=== PATIENT | male | born 1950 | race Caucasian/White ===

== ENCOUNTER → 2018-12-15 06:29 | Outpatient (CLI) | payer MEDICARE, SELFPAY ==
--- NOTE | 2018-12-15 | DI.ECHO.S_ITS ---
[facility] +---------+ : : [address] : : [place] : : : : [id number] : : : : Phone: [phone]---------+ Echocardiogram Report + + :Name: CIERRA MAZARIEGOS Study Date: 12/15/2018 Height: 67 in : :[facility] Weight: 170 lb : : Gender: Male BSA: 1.9 m2 : :: 1950 Age: 68 yrs BP: 160/88 mmHg: :Reason For Study: Arrhythmia : : Performed By: Nkechi Campbell : :Referring: BENJAMIN GUIDO : + + Interpretation Summary 1) Normal left ventricular size with low normal function (EF 50-55%). 2) Normal right ventricular size and function grossly. 3) Mild mitral regurgitation present. 4) Normal right sided pressures and estimated PA pressures. 5) No prior Echo available for comparison. Procedure: A two-dimensional transthoracic echocardiogram with color flow and Doppler was performed. The study quality was technically adequate. There is no prior echocardiogram noted for this patient. The heart rate ranged between 55-62 bpm during the study. Left Ventricle: The left ventricle is normal in size. There is mild asymmetric left ventricular hypertrophy. The ejection fraction is estimated to be 50-55%. Left ventricular systolic function is low normal. There are no focal wall motion abnormalities. Right Ventricle: The right ventricle grossly appears normal in size with probable normal systolic function. Atria: The left atrium is moderately dilated. Right atrial size is normal. The interatrial septum is intact with no evidence for an atrial septal defect. Mitral Valve: The mitral valve is grossly normal. There is mild mitral regurgitation. Aortic Valve: The aortic valve is trileaflet. The aortic valve opens well. No aortic regurgitation is present. Tricuspid Valve: The tricuspid valve is normal in structure and function. There is trace tricuspid regurgitation. The right ventricular systolic pressure is estimated to be at least 29 mmHg based on an estimated right atrial pressure of 3 mm Hg. Pulmonic Valve: The pulmonic valve is not well seen, but is grossly normal. There is no pulmonic valvular regurgitation. Great Vessels: The aortic root is normal size. The dimensions of the ascending aorta are normal. The aortic arch is normal in size. The IVC is of normal diameter and collapses greater than 50% with a sniff. This suggests a low right atrial pressure of 3 mm Hg. Pericardium/ Pleura There is no pericardial effusion. There is no pleural effusion. MMode/2D Measurements & Calculations LVIDd: 4.9 cm Ao root diam: 3.3 cm LVIDs: 3.6 cm Aortic Jxn: 2.5 cm FS: 25.8 % asc Aorta Diam: 2.9 cm EPSS: 1.0 cm Ao Arch Diam (Prox Trans): 2.6 cm IVSd: 1.3 cm LVPWd: 0.93 cm LV vera. diameter/BSA (cm/m^2): 2.6 LV sys. diameter/BSA (cm/m^2): 1.9 LA dimension: 4.4 cm RA long axis: 4.5 cm LA A2 area: 22.7 cm2 RA area: 15.4 cm2 LA A4 area: 23.9 cm2 RA vol: 44.9 ml LA length (vol): 6.0 cm RA : 23.8 ml/m2 LA vol: 76.4 ml IVC diam: 2.0 cm LA vol index: 40.5 ml/m2 RVDd major: 6.5 cm RVD1 (basal): 3.4 cm RVD2 (mid): 3.3 cm Doppler Measurements & Calculations Ao V2 max: 132.4 cm/sec MV E max hill: 72.3 cm/sec Ao V2 mean: 85.5 cm/sec MV A max hill: 89.0 cm/sec Ao max P.0 mmHg MV E/A: 0.81 Ao mean P.5 mmHg Med Peak E' Hill: 5.9 cm/sec Ao V2 VTI: 30.8 cm E/E' med: 12.3 Lat Peak E[place] Hill: 8.6 cm/sec E/E' lat: 8.4 E/e' average: 10.3 MV dec time: 0.24 sec MV P1/2t: 70.4 msec TR max hill: 256.1 cm/sec MV P1/2t max hill: 71.9 cm/sec TR max P.2 mmHg MVA(P1/2t): 3.1 cm2 PA V2 max: 87.4 cm/sec PA V2 mean: 62.8 cm/sec PA mean P.8 mmHg PA Accel Time: 0.15 sec MR flow rate: 55.4 cm3/sec MR PISA radius: 0.48 cm Reading Physician:09:21 AM
== END ==
PROVIDERS: PCP Internal Medicine; Visit Provider Internal Medicine
DX: I34.0 Nonrheumatic mitral (valve) insufficiency (principal); I49.9 Cardiac arrhythmia, unspecified
CPT/HCPCS: 93306

== ENCOUNTER → 2018-12-19 10:43 | Outpatient (CLI) | payer MEDICARE, OTHER, SELFPAY ==
[2018-12-19 15:05] LABS: Alanine Aminotransferase 21 IU/L (21-72); Albumin 4.4 g/dL (3.5-5.0); Albumin Globulin Ratio 1.6 (1.0-2.8); Alkaline Phosphatase 98 U/L (38-126); Aspartate Aminotransferase 29 IU/L (17-59); Bilirubin Total 0.7 mg/dL (0.2-1.3); Blood Urea Nitrogen 13 mg/dL (9-20); Calcium 9.5 mg/dL (8.4-10.2); Carbon Dioxide 29 mmol/L (22-32); Chloride 102 mmol/L (98-107); Estimated Glomerular Filt Rate > 60.0 mL/min (>60); Globulin 2.8 g/dL (1.7-4.1); Glucose 100 mg/dL (80-110); HEMOLYSIS < 15 (0-50); Potassium 4.2 mmol/L (3.4-5.1); Sodium 140 mmol/L (137-145); Total Protein 7.2 g/dL (6.3-8.2)
[2018-12-19 15:32] LABS: TSH w/ Reflex to FT4 3.69 uIU/mL (0.47-4.68)
== END ==
PROVIDERS: Family Provider Internal Medicine Cardiovascular Disease; PCP Internal Medicine; Visit Provider Internal Medicine
DX: I49.9 Cardiac arrhythmia, unspecified (principal)
CPT/HCPCS: 36415; 80053; 84443

== ENCOUNTER → 2019-01-01 07:41 | Outpatient (CLI) | payer MEDICARE, SELFPAY ==
--- NOTE | 2019-01-01 09:52 | P.PCN_ITS ---
Cardiac Stress Test Report Referral & Results Date Patient Seen: 01/01/19 Requesting provider: See Syed Indication: Bradycardia Rest ECG: Patient with nonspecific interventricular conduction delay at rest Procedure Note: Today following both written and verbal informed consent, the patient was exercised according to a standard Rob protocol. The patient exercised for a total of 8 minutes 8 seconds achieving a maximum heart rate of 142. Patient's maximum systolic blood pressure was 270. This was an estimated 10.1 MET's. Patient experienced significant dyspnea with wheezing at end exercise which prompted him to. Patient's blood pressure response to exercise was excessive, often seen in the setting of significant pulmonary disease or distress Patient had no clear ST-T segment changes with exercise. His underlying interventricular conduction abnormality would potentially mass some evidence of ischemia Occasional PAC Functional aerobic impairment rated-12% on the active scale, or 112% of normal Impression: Patient with no evidence of ischemia per usual criteria. Baseline ECG abnor malities might mask some findings. Patient did experience some mild symptoms I think related more to pulmonary disease and dyspnea than anything else. If clinical concern warrants this certainly could be repeated with perfusion imaging as well for increased sensitivity and specificity Patient's exercise capacity is quite good. Overall this is a low risk study Please note: Actual ECG tracings can be found in the PACS system.
== END ==
PROVIDERS: Family Provider Internal Medicine Cardiovascular Disease; PCP Internal Medicine; Visit Provider Internal Medicine
DX: I49.9 Cardiac arrhythmia, unspecified (principal); R06.00 Dyspnea, unspecified; J98.4 Other disorders of lung
CPT/HCPCS: 93016; 93017; 93018

== ENCOUNTER → 2019-01-17 09:16 | Outpatient (CLI) | payer MEDICARE, OTHER, SELFPAY ==
[2019-01-17 11:12] LABS: Cholesterol 216 mg/dL (140-199); HDL Cholesterol 46 mg/dL (40-60); LDL Cholesterol Calculated 147 mg/dL (<100); Triglycerides 117 mg/dL (35-150)
== END ==
PROVIDERS: PCP Internal Medicine; Visit Provider Internal Medicine Cardiovascular Disease
DX: I10 Essential (primary) hypertension (principal); E78.5 Hyperlipidemia, unspecified
CPT/HCPCS: 36415; 80061; 83735

== ENCOUNTER → 2019-05-02 11:00 | Outpatient (CLI) | payer MEDICARE, SELFPAY ==
[2019-05-02 13:08] LABS: BUN Creatinine Ratio 16.3 (6-22); Blood Urea Nitrogen 13 mg/dL (9-20); Calcium 9.2 mg/dL (8.4-10.2); Carbon Dioxide 32 mmol/L (22-32); Chloride 100 mmol/L (98-107); Estimated Glomerular Filt Rate > 60.0 mL/min (>60); Glucose 87 mg/dL (80-110); HEMOLYSIS < 15 (0-50); Potassium 3.6 mmol/L (3.4-5.1); Sodium 140 mmol/L (137-145)
== END ==
PROVIDERS: Family Provider Internal Medicine; PCP Internal Medicine
DX: G45.9 Transient cerebral ischemic attack, unspecified (principal)
CPT/HCPCS: 36415; 80048

== ENCOUNTER → 2019-05-03 13:22 | Outpatient (CLI) | payer MEDICARE, SELFPAY ==
--- NOTE | 2019-05-03 | DI.CT.S_ITS ---
PROCEDURE: CT ANGIO HEAD AND NECK INDICATIONS: Transient cerebral ischemic attack, TECHNIQUE: Pre-contrast 4.5 mm thick sections acquired from the foramen magnum to the vertex. After the administration of intravenous contrast, 1 mm thick sections acquired from the aortic arch through the [place]. Post-contrast 4.5 mm thick sections then re-acquired from the foramen magnum to the vertex. 3-dimensional epagldv-pgvkeybad-mqpjsgkvfe (MIP) and/or volume rendering reformats were acquired of the central intracranial vasculature and neck separately. COMPARISON: None. FINDINGS: Image quality: Excellent. BRAIN: CSF spaces: Ventricles are normal in size and shape. Basal cisterns are patent. No extra-axial fluid collections. Brain: No midline shift. No intracranial bleeds or masses. Salas-white matter interface appears intact. Skull and face: Calvarium and facial bones appear intact, without suspicious lesions. Orbits appear normal. Sinuses: Sinuses and mastoids are clear. HEAD CT ANGIOGRAPHY: Anterior circulation: The 5th can be seen within the right internal carotid artery. There is an approximately 80% narrowing seen involving the left cavernous internal carotid artery, which is best seen on series 21 image 48. The flow within the paired anterior cerebral arteries is normal and symmetric. The flow within the middle cerebral arteries is normal and symmetric. The anterior communicating artery is seen. No aneurysms are seen. Posterior circulation: Visualized portions of the vertebral arteries demonstrate normal caliber, and join to form a normal appearing basilar artery. Flow within the posterior cerebral arteries is normal and symmetric. No aneurysms are seen. NECK CT ANGIOGRAPHY: Carotid system: Incidental note is made of a common origin of the right brachiocephalic artery and the left common carotid artery (bovine type arch). This is considered to be a developmental variant of no clinical consequence. Atherosclerotic calcification can be seen involving aortic arch. The origins of the common carotid arteries appear patent. The common carotid arteries demonstrate normal caliber and courses. 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 There is approximately 50% narrowing seen involving the left proximal internal carotid artery. Posterior circulation: The origins of the vertebral arteries both appear widely patent. The more superior extracranial portions of both vertebral arteries also demonstrate normal courses and calibers. They join to form a normal appearing basilar artery. Soft tissues: Visualized neck soft tissues demonstrate no suspicious abnormalities. Bones: No suspicious bony lesions. Visualized cervical spine appears normally aligned. 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 There is an approximate 80% narrowing seen involving the left proximal internal carotid artery. There is an approximate 80% narrowing involving the left cavernous internal carotid artery. Incidental note is made of: Wasatch syndrome, with a prominent right styloid process. Bovine type aortic branching pattern. Any quantitative measurements of stenosis were performed using NASCET criteria. Dictated by: Rajat Muhammad M.D. on 05/03/2019 at 14:17 Approved by: Rajat Muhammad M.D. on 05/03/2019 at 14:25
== END ==
LOC: LAB 13:26 → CT 13:29
PROVIDERS: Family Provider Internal Medicine; PCP Internal Medicine; Visit Provider Psychiatry & Neurology Neurology
DX: I65.23 Occlusion and stenosis of bilateral carotid arteries (principal); Q68.0 Congenital deformity of sternocleidomastoid muscle
CPT/HCPCS: 70496; 70498; Q9967

== ENCOUNTER → 2019-09-18 09:03 | Outpatient (CLI) | payer MEDICARE, SELFPAY ==
[2019-09-18 09:51] LABS: Add Manual Diff / Slide Review NO; Basophils Absolute Auto 0 /uL (0-100); Basophils Percent Auto 0.2 % (0-2); Eosinophils Absolute Auto 200 /uL (0-450); Eosinophils Percent Auto 4.3 % (2-4); Hematocrit 46.7 % (41-53); Hemoglobin 15.9 g/dL (13.5-17.5); Lymphocytes Absolute Auto 1100 /uL (1100-4500); Lymphocytes Percent Auto 20.2 % (25-40); Mean Corpuscular Hemoglobin 29.6 PG (26-34); Monocytes Absolute Auto 500 /uL (0-900); Neutrophils Absolute Auto 3500 /uL (1500-7000); Neutrophils Percent Auto 66.3 % (50-75); Platelet Count 194 X10^3/uL (150-400); Red Blood Cell Count 5.36 X10^6/uL (4.5-5.9); Red Cell Distribution Width 14.1 % (11.6-14.8); White Blood Cell Count 5.3 X10^3/uL (4.5-11.0)
[2019-09-18 10:00] LABS: Cholesterol 108 mg/dL (140-199); HDL Cholesterol 39 mg/dL (40-60); LDL Cholesterol Calculated 57 mg/dL (<100); Triglycerides 59 mg/dL (35-150)
== END ==
PROVIDERS: Family Provider Internal Medicine; PCP Internal Medicine; Referring Provider Internal Medicine Cardiovascular Disease; Visit Provider Internal Medicine Cardiovascular Disease
DX: E78.5 Hyperlipidemia, unspecified (principal); I10 Essential (primary) hypertension
CPT/HCPCS: 36415; 80061; 85025

== ENCOUNTER → 2022-03-08 08:03 | Outpatient (CLI) | payer MEDICARE, SELFPAY ==
--- NOTE | 2022-03-08 | DI.US.S_ITS ---
PROCEDURE: US CAROTID DOPPLER BI INDICATIONS: Occlusion and stenosis of right carotid artery TECHNIQUE: Color and pulse Doppler interrogation was performed of both carotid systems, with image documentation and velocity measurements. COMPARISON: [facility], CT, CT ANGIO HEAD AND NECK, 05/03/2019, 13:36. FINDINGS: Stenosis calculations are based on SRU (Society of Radiologists in Ultrasound) criteria. Right side: Brachial blood pressure: 162/98 mm Hg. Common carotid artery peak systolic velocity: 61 cm/sec. Internal carotid artery peak systolic velocity: Occluded Internal carotid artery end diastolic velocity: Occluded External carotid artery peak systolic velocity: 124 cm/sec. ICA/CCA peak systolic ratio: Occluded Salas scale imaging description: There is an occluded right internal carotid artery. There is potential revascularization seen adjacent to the occluded right internal carotid artery. Percent internal carotid artery stenosis: 100%. Vertebral artery: Flow direction is antegrade. Left side: Brachial blood pressure: 159/96 mm Hg. Common carotid artery peak systolic velocity: 99 cm/sec. Internal carotid artery peak systolic velocity: 76 cm/sec. Internal carotid artery end diastolic velocity: 32 cm/sec. External carotid artery peak systolic velocity: 138 cm/sec. ICA/CCA peak systolic ratio: 0.7 Salas scale imaging description: Moderate atherosclerotic changes are seen. Percent internal carotid artery stenosis: 50-69% by velocity criteria. Vertebral artery: Flow direction is antegrade. IMPRESSION: As previously demonstrated, there is an occluded right internal carotid artery. Potential revascularization can be seen adjacent to the occluded right internal carotid artery. Less than 50% narrowing can be seen involving the right internal carotid artery. Flat Dictated by: Rajat Muhammad M.D. on 03/08/2022 at 11:04 Approved by: Rajat Muhammad M.D. on 03/08/2022 at 11:06
[2022-03-08 09:25] LABS: Alanine Aminotransferase 35 IU/L (<50); Albumin 3.9 g/dL (3.5-5.0); Albumin Globulin Ratio 1.8 (1.0-2.8); Alkaline Phosphatase 118 U/L (38-126); Aspartate Aminotransferase 34 IU/L (17-59); BUN Creatinine Ratio 21.1 (6-22); Bilirubin Total 0.4 mg/dL (0.2-1.3); Blood Urea Nitrogen 20 mg/dL (9-20); Calcium 8.3 mg/dL (8.4-10.2); Carbon Dioxide 29 mmol/L (22-32); Chloride 104 mmol/L (98-107); Cholesterol 113 mg/dL (140-199); Estimated Glomerular Filt Rate > 60 mL/min (>60); Globulin 2.2 g/dL (1.7-4.1); Glucose 94 mg/dL (80-110); HDL Cholesterol 45 mg/dL (40-60); HEMOLYSIS < 15 (0-50); LDL Cholesterol Calculated 58 mg/dL (<100); Potassium 4.1 mmol/L (3.4-5.1); Sodium 140 mmol/L (137-145); Total Protein 6.1 g/dL (6.3-8.2); Triglycerides 51 mg/dL (35-150)
== END ==
PROVIDERS: Family Provider Internal Medicine; PCP Internal Medicine; Referring Provider Internal Medicine Cardiovascular Disease; Visit Provider Internal Medicine Cardiovascular Disease
DX: E78.5 Hyperlipidemia, unspecified (principal); I65.21 Occlusion and stenosis of right carotid artery
CPT/HCPCS: 36415; 80053; 80061; 93880

== ENCOUNTER 2023-01-20 11:36 | Emergency (ER) | payer MEDICARE, SELFPAY ==
[2023-01-20 11:39] VITALS: BP 189/104; PULSE 84; RESP 16; TEMP 36.6; O2SAT 97; BMI 24.9
[2023-01-20] MEDS: TET,DIPH,PERTUSS(ACELL),VAC/PF 0.5 ML SYRINGE IM (11:50)
--- NOTE | 2023-01-20 11:52 | DI.RAD.S_ITS ---
PROCEDURE: XR FINGER RT MIN 2V INDICATIONS: cut tip of finger on saw TECHNIQUE: AP hand, 2 views of the 2nd finger(s) acquired. COMPARISON: None. FINDINGS: Bones: No fractures or dislocations. No suspicious bony lesions. Soft tissues: Soft tissue defect involving tip of 2nd digit is seen. No suspicious soft tissue calcifications. IMPRESSION: Soft tissue defect over tip of 2nd digit. No acute 2nd finger fracture or dislocation. No radiopaque foreign body is seen. Dictated by: Hema Fitzgerald M.D. on 01/20/2023 at 12:16 Approved by: Hema Fitzgerald M.D. on 01/20/2023 at 12:21
--- NOTE | 2023-01-20 12:16 | ED_ITS ---
HPI - Extremity Injury (Upper) General Chief Complaint: Extremity Injury, Upper Stated Complaint: Finger lac, cut on saw on blood thinners Time Seen by Provider: 01/20/23 11:50 Source: patient Mode of arrival: Ambulatory History of Present Illness HPI narrative: Patient is a 72-year-old male history of pacemaker started on Eliquis yesterday presents today after hand worse saw. He cut his distal left 4th finger. Bleeding is well-controlled. No numbness tingling or weakness. No other injury. Tetanus is unknown. Right-hand dominant. He was seen and evaluated by his power electronics engineer yesterday at [facility]. At 1 point it was thought that he had a remote TIA with visual changes many years ago and so he was started on Eliquis. He has not officially been diagnosed with a stroke he was previously just taking aspirin, nonetheless is recommended he take Eliquis. Related Data Previous Rx's Medication Instructions Recorded hydrocodone 5 mg-acetaminophen 325 1 tab PO Q6H PRN pain #10 tabs 01/20/23 mg tablet Allergies Allergy/AdvReac Type Severity Reaction Status Date / Time No Known Drug Allergies Allergy Verified 01/20/23 11:42 Review of Systems Review of Systems ROS Unobtainable: All systems reviewed & are unremarkable except as noted in HPI and below Patient History Social History Smoking Status: Former smoker Smoking Status: Former smoker alcohol intake frequency: 0-2 drinks per day Substance Use Type: does not use Exam Initial Vital Signs Initial Vital Signs: Vital Signs Temperature 97.9 F 01/20/23 11:39 Pulse Rate 84 01/20/23 11:39 Respiratory Rate 16 01/20/23 11:39 Blood Pressure 189/104 H 01/20/23 11:39 Pulse Oximetry 97 01/20/23 11:39 Oxygen Delivery Method Room Air 01/20/23 11:39 GENERAL: Alert pleasant well-appearing 72-year-old male CARDIOVASCULAR: peripheral pulses in tact, cap refill <2 sec RESPIRATORY: No respiratory distress, speaks in full sentences without difficulty EXTREMITIES: Normal range of motion, no clubbing or edema. Neurovascularly intact NEUROLOGICAL: Cranial nerves II through XII grossly intact. Normal gait and speech. SKIN: Left 4th finger distal tip palmar side avulsion laceration no nail bed involvement small flap Course Orders Ordered: ED Orders 01/20/23 11:52 XR finger RT min 2V Stat Discontinued Medications Diphtheria/Tetanus/Acell Pertussis (Tet,Diph,Pertuss(Acell),Vac/Pf 0.5 Ml Syringe) 0.5 ml IM .ONCE ONE Stop: 01/20/23 11:46 Last Admin: 01/20/23 11:50 Dose: 0.5 ml Documented By: MASON Vital Signs Vital signs: Vital Signs - 8 hr 01/20/23 11:39 01/20/23 12:47 Temperature 97.9 F Pulse Rate 84 82 Respiratory Rate 16 16 Blood Pressure 189/104 H 206/97 H Pulse Oximetry 97 99 Oxygen Delivery Method Room Air Room Air MDM - Extremity Injury (Upper) Imaging Data Extremity x-ray #1: Radiologist's Impression: PROCEDURE:? XR FINGER RT MIN 2V ? INDICATIONS:? cut tip of finger on saw ? TECHNIQUE:? AP hand, 2 views of the 2nd finger(s) acquired.? ? COMPARISON:? None. ? FINDINGS:? ? Bones:? No fractures or dislocations.? No suspicious bony lesions.? ? Soft tissues:? Soft tissue defect involving tip of 2nd digit is seen.? No suspicious soft tissue calcifications.? ? IMPRESSION:? Soft tissue defect over tip of 2nd digit.? No acute 2nd finger fracture or dislocation.? No radiopaque foreign body is seen. ? ? Dictated by: Hema Fitzgerald M.D. on 01/20/2023 at 12:16 ? ? Approved by: Hema Fitzgerald M.D. on 01/20/2023 at 12:21 ? [facility] Narrative Medical decision making narrative: 72-year-old male on Eliquis after saw injury to left hand. Unfortunately it is not repairable. His irrigated and cleaned no fracture. Tetanus has been updated. Discussion with patient about Eliquis risk of bleeding and medications that he can and can not take. All questions have been addressed. Discussed bleeding control at home if needed along with wound care. Discharge Plan Departure Patient Disposition: Home Clinical Impression: Laceration of finger of left hand Qualifiers: Encounter type: initial encounter Finger: ring finger Damage to nail status: without damage Foreign body presence: without foreign body Qualified Code(s): S61.215A - Laceration without foreign body of left ring finger without damage to nail, initial encounter Instructions: DI for Avulsion Laceration (Not Requiring Sutures) Activity Restrictions/Additional Instructions: *You have been diagnosed with laceration right 4th finger *What to do: At this time keep dressing on until tomorrow. You may shower and bathe. Keep it clean and dry with soap and water. Apply antibiotic ointment. Monitor daily for signs of infection. If you are to do work you must keep it covered and wash it While taking Eliquis you are likely to have increased bleeding. Apply pressure and ice. If still bleeding after 60 minutes you may need to be evaluated in the ED *Continue to take medications as directed Do not take ibuprofen Advil leave naproxen or NSAIDs with Eliquis. You may take Tylenol [place] 1 tablet every 6 hours if needed for severe pain *Follow up with your primary care provider in 2-3 days or call [phone] *Return to ER if you should have increased redness pain swelling bleeding or any new, worsening or concerning symptoms CONTROLLED SUBSTANCE DISCHARGE (Narcotoic/benzodiazepine/Flexeril/Phenergan) 1. You have been prescribed narcotic medications, it does have acetaminophen/Tylenol/paracetamol in it, DO NOT TAKE MORE THAN 4,00mg in 24 hours of Tylenol. TRAMADOL DOES NOT CONTAIN TYLENOL 2. Please understand that we cannot provide further refills of narcotics, benzodiazepines or controlled substances through the ED and her pain management will need to be through your provider. 3. While on these medications you cannot drive or operate heavy machinery. 4. You cannot sign legal documents or perform any duties such as this. 5. As long as you're taking opiate pain medications he should also be taking a stool softener such as Colace, Dulcolax, MiraLAX or prune juice, to help avoid constipation. Prescriptions: New hydrocodone-acetaminophen 5-325 mg tablet 1 tab PO Q6H PRN (Reason: pain) Qty: 10 0RF Referrals: See Syed MD [Primary Care Provider] - Stand Alone Forms: Patient Portal/API
[2023-01-20 12:47] VITALS: BP 206/97; PULSE 82; RESP 16; O2SAT 99
== END 2023-01-20 12:49 | disposition home or self-care (01) ==
PROVIDERS: Emergency Provider Emergency Medicine; Family Provider Internal Medicine; PCP Internal Medicine
DX: S61.215A Laceration without foreign body of left ring finger without damage to nail, initial encounter (principal); W27.0XXA Contact with workbench tool, initial encounter; Z23 Encounter for immunization
CPT/HCPCS: 73140; 90471; 99283; 99284; 90715

== ENCOUNTER → 2023-09-16 08:38 | Outpatient (CLI) | payer MEDICARE, SELFPAY ==
--- NOTE | 2023-09-16 | DI.ECHO.S_ITS ---
[facility]---------+ [facility] +---------+ : : [address] : [place] : : : : [phone] : : : : Phone: [phone]---------+ Echocardiogram Report + + :Name: CIERRA MAZARIEGOS Study Date: 09/16/2023 Height: 67 in : :[facility] ReadingLocation: Weight: 170 lb : : Gender: Male BSA: 1.9 m2 : :: 1950 Age: 73 yrs BP: 177/95 mmHg: :Reason For Study: MITRAL VALVE INSUFFICIENCY : :Ordering Physician: JOHNNA, : :AMENA Huerta Performed By: Nabil Russell : :Referring: AMENA OROPEZA : + + Interpretation Summary The left ventricle is normal in size. The ejection fraction is estimated to be 50-55%. No significant change in LVEF from the previous study. The right ventricle is normal in size and function. There is a pacemaker lead in the right ventricle. Pacemaker is a new finding. The aortic valve is trileaflet. There is mildly reduced leaflet mobility. There is no hemodynamically significant valvular aortic stenosis. The IVC is of normal diameter and collapses greater than 50% with a sniff. This suggests a low right atrial pressure of 3 mm Hg. BP: 177/95 mmHg Procedure: A two-dimensional transthoracic echocardiogram with color flow and Doppler was performed. The study quality was technically adequate. Comparison is made with the echocardiogram of 12/15/18. Cannot rule out paced rhythm. Intermittent PACs. Left Ventricle: The left ventricle is normal in size. Left ventricular wall thickness is at the upper limits of normal. There is no thrombus. The ejection fraction is estimated to be 50-55%. There are no focal wall motion abnormalities. Diastolic parameters suggest a relaxation abnormality of the left ventricle, consistent with probable normal filling pressures. Right Ventricle: The right ventricle is normal in size and function. There is a pacemaker lead in the right ventricle. The right ventricular systolic function is normal. Atria: The left atrial size is normal. The left atrium has significantly decreased in size since the prior echo exam. Right atrial size is normal. There is a catheter/pacemaker lead seen in the right atrium. The interatrial septum grossly appears intact with no obvious evidence for an atrial septal defect. Mitral Valve: There is mild mitral annular calcification. There is no mitral valve stenosis. There is trace mitral regurgitation. Aortic Valve: The aortic valve is trileaflet. There is mildly reduced leaflet mobility. The aortic valve is mildly calcified. There is no hemodynamically significant valvular aortic stenosis. No aortic regurgitation is present. Tricuspid Valve: The tricuspid valve is normal in structure and function. There is no tricuspid stenosis. There is trace tricuspid regurgitation. Pulmonary artery pressures cannot be estimated because of the lack of a measurable TR jet velocity. Pulmonic Valve: The pulmonic valve is not well visualized. There is no pulmonic valvular stenosis. There is no pulmonic valvular regurgitation. Great Vessels: The aortic root is normal size. The dimensions of the ascending aorta are normal. The IVC is of normal diameter and collapses greater than 50% with a sniff. This suggests a low right atrial pressure of 3 mm Hg. Pericardium/ Pleura There is no pericardial effusion. There is no pleural effusion. MMode/2D Measurements & Calculations LVIDd: 4.9 cm LVOT diam: 1.9 cm LVIDs: 3.5 cm Ao root diam: 3.2 cm FS: 27.0 % asc Aorta Diam: 3.2 cm IVSd: 1.2 cm LVPWd: 1.2 cm LV vera. diameter/BSA (cm/m^2): 2.6 LV sys. diameter/BSA (cm/m^2): 1.9 LA A2 area: 19.5 cm2 RA long axis: 4.2 cm LA A4 area: 19.5 cm2 RA area: 12.2 cm2 LA length (vol): 5.3 cm RA vol: 30.0 ml LA vol: 61.1 ml RA : 15.9 ml/m2 LA vol index: 32.4 ml/m2 IVC diam: 1.2 cm RVD1 (basal): 3.5 cm RVD2 (mid): 3.2 cm Doppler Measurements & Calculations Ao V2 max: 145.1 cm/sec LVOT [place]: 94.9 cm/sec Ao V2 mean: 107.4 cm/sec LV V1 max P.6 mmHg Ao max P.4 mmHg LV V1 VTI: 20.8 cm Ao mean P.9 mmHg LORETA(I,D): 1.7 cm2 Ao V2 VTI: 33.9 cm LORETA(V,D): 1.8 cm2 sev ratio: 0.61 LORETA indexed to BSA (cm^2/m^2): 0.90 MV E max hill: 53.2 cm/sec PA V2 max: 87.3 cm/sec MV A max hill: 89.0 cm/sec PA V2 mean: 70.1 cm/sec MV E/A: 0.60 PA mean P.1 mmHg Med Peak E' Hill: 6.0 cm/sec PA pr(Accel): 39.6 mmHg E/E' med: 8.9 Lat Peak E' [place]: 4.8 cm/sec E/E' lat: 11.0 E/e' average: 10.0 MV dec time: 0.09 sec SV(LVOT): 57.6 ml Reading Physician:05:02 PM
[2023-09-16 10:10] LABS: Add Manual Diff / Slide Review NO; Basophils Absolute Auto 0 /uL (0-100); Basophils Percent Auto 0.2 % (0-2); Eosinophils Absolute Auto 200 /uL (0-450); Eosinophils Percent Auto 3.7 % (2-4); Hemoglobin 16.2 g/dL (13.5-17.5); Lymphocytes Absolute Auto 1200 /uL (1100-4500); Lymphocytes Percent Auto 20.7 % (25-40); Mean Corpuscular HGB Conc 34.5 % (30-36); Mean Corpuscular Hemoglobin 30.5 PG (26-34); Mean Corpuscular Volume 88.5 fL (80-100); Monocytes Absolute Auto 500 /uL (0-900); Monocytes Percent Auto 9.1 % (3-14); Neutrophils Absolute Auto 3900 /uL (1500-7000); Neutrophils Percent Auto 66.3 % (50-75); Platelet Count 188 X10^3/uL (150-400); Red Blood Cell Count 5.31 X10^6/uL (4.5-5.9); Red Cell Distribution Width 15.5 % (11.6-14.8); White Blood Cell Count 5.9 X10^3/uL (4.5-11.0)
[2023-09-16 10:34] LABS: Alanine Aminotransferase 34 IU/L (<50); Albumin 4.1 g/dL (3.5-5.0); Albumin Globulin Ratio 1.6 (1.0-2.8); Alkaline Phosphatase 102 U/L (38-126); Aspartate Aminotransferase 37 IU/L (17-59); Bilirubin Total 0.7 mg/dL (0.2-1.3); Blood Urea Nitrogen 15 mg/dL (9-20); Calcium 9.3 mg/dL (8.4-10.2); Carbon Dioxide 29 mmol/L (22-32); Chloride 103 mmol/L (98-107); Cholesterol 128 mg/dL (140-199); Estimated Glomerular Filt Rate > 60 mL/min (>60); Globulin 2.6 g/dL (1.7-4.1); Glucose 97 mg/dL (80-110); HDL Cholesterol 48 mg/dL (40-60); HEMOLYSIS < 15 (0-50); LDL Cholesterol Calculated 63 mg/dL (<100); Potassium 4.8 mmol/L (3.4-5.1); Sodium 139 mmol/L (137-145); Total Protein 6.7 g/dL (6.3-8.2); Triglycerides 87 mg/dL (35-150)
== END ==
PROVIDERS: Referring Provider Nurse Practitioner; Visit Provider Nurse Practitioner
DX: I34.81 Nonrheumatic mitral (valve) annulus calcification (principal); I10 Essential (primary) hypertension; E78.5 Hyperlipidemia, unspecified; I49.49 Other premature depolarization; Z95.0 Presence of cardiac pacemaker
CPT/HCPCS: 36415; 80053; 80061; 83735; 85025; 93306

== ENCOUNTER 2024-06-16 03:14 | Emergency (ER) | payer MEDICARE, SELFPAY ==
[2024-06-16] VITALS (26 sets, daily range): BP systolic 140–216; BP diastolic 62–101; PULSE 68–91; RESP 18–118; TEMP 36.1; O2SAT 94–97; BMI 26.3
--- NOTE | 2024-06-16 03:21 | ED_ITS ---
HPI - Dental/Oral <Nithya Santoro MD - Last Filed: 06/16/24 21:55> General Chief complaint: Dental/Oral Stated complaint: tooth pulled t-7, cloth came out, bleeding Time Seen by Provider: 06/16/24 03:16 History of Present Illness HPI Narrative: 74-year-old male with history of atrial fibrillation on Eliquis presents by private vehicle from home for bleeding from his gums. He had a tooth extraction 1 week ago and has been fine until this morning, when the clot dislodged and he began to bleed. He has resumed his Eliquis since his dental procedure. Patient was unable to get the bleeding to stop at home and so he is presenting for evaluation. Related Data Previous Rx's Medication Instructions Recorded hydrocodone 5 mg-acetaminophen 325 1 tab PO Q6H PRN pain #10 tabs 01/20/23 mg tablet chlorhexidine gluconate 0.12 % 15 ml buccal DAILY #15 mL 06/16/24 mouthwash (Peridex) Allergies Allergy/AdvReac Type Severity Reaction Status Date / Time No Known Drug Allergies Allergy Verified 01/20/23 11:42 Patient History <Nithya Santoro MD - Last Filed: 06/16/24 21:55> Social History Smoking Status: Former smoker Smoking Status: Former smoker alcohol intake frequency: 0-2 drinks per day Substance Use Type: does not use Exam <Nithya Santoro MD - Last Filed: 06/16/24 21:55> Initial Vital Signs Initial Vital Signs: Vital Signs Pulse Rate 83 06/16/24 03:19 Pulse Oximetry 96 06/16/24 03:19 Const: Awake, alert, no acute distress, nontoxic appearing HEENT: Steady oozing of blood from right posterior molar socket Skin: Warm, Dry, intact, no rashes Neuro: AO x3, CN II-XII grossly intact, moves all extremities <Ángel Espinosa DO - Last Filed: 06/16/24 09:07> Initial Vital Signs Initial Vital Signs: Vital Signs Pulse Rate 83 06/16/24 03:19 Pulse Oximetry 96 06/16/24 03:19 Course <Nithya Santoro MD - Last Filed: 06/16/24 21:55> Orders Ordered: Discontinued Medications Hydralazine HCl (Hydralazine 20 Mg/Ml Vial) 20 mg IV NOW ONE Stop: 06/16/24 05:20 Last Admin: 06/16/24 05:33 Dose: 20 mg Documented By: DAVON Tranexamic Acid 1,000 mg/ (Sodium Chloride) 100 mls @ 200 mls/hr INJ NOW ONE Stop: 06/16/24 04:33 Last Admin: 06/16/24 04:14 Dose: Not Given Documented By: Tranexamic Acid 1,000 mg/ (Sodium Chloride) 100 mls @ 200 mls/hr IV NOW ONE Stop: 06/16/24 07:00 Last Infusion: 06/16/24 07:16 Dose: Infused Documented By: Admin: 06/16/24 06:36 Dose: 200 mls/hr Documented By: DAVON Lidocaine/Epinephrine (Lidocaine 1% W/Epi) 4 ml INJ INTRA-OP ONE Stop: 06/16/24 06:52 Last Admin: 06/16/24 07:00 Dose: 4 ml Documented By: DAVON Silver Nitrate/Potassium Nitrate (Silver Nitrate Stick) 2 each TOP NOW ONE Stop: 06/16/24 04:18 Last Admin: 06/16/24 04:22 Dose: 2 each Documented By: DAVON Silver Nitrate/Potassium Nitrate (Silver Nitrate Stick) 2 each TOP NOW ONE Stop: 06/16/24 06:32 Last Admin: 06/16/24 06:35 Dose: 2 each Documented By: DAVON Tranexamic Acid (Tranexamic Acid 1,000 Mg Vial) 1,000 mg TOP NOW ONE Stop: 06/16/24 04:12 Last Admin: 06/16/24 04:25 Dose: 1,000 mg Documented By: STAR Vital Signs Vital signs: Vital Signs - 8 hr 06/16/24 03:19 06/16/24 03:20 06/16/24 03:20 Temperature Pulse Rate 83 82 Respiratory Rate Blood Pressure 146/95 H Pulse Oximetry 96 97 Oxygen Delivery Method 06/16/24 03:21 06/16/24 03:30 06/16/24 03:30 Temperature 97 F L Pulse Rate 84 84 Respiratory Rate 18 Blood Pressure 146/65 H 176/81 H Pulse Oximetry 96 97 Oxygen Delivery Method Room Air 06/16/24 04:00 06/16/24 04:02 06/16/24 04:02 Temperature Pulse Rate 68 79 Respiratory Rate Blood Pressure 182/81 H Pulse Oximetry 95 96 Oxygen Delivery Method 06/16/24 04:30 06/16/24 04:30 06/16/24 05:00 Temperature Pulse Rate 91 H 75 Respiratory Rate Blood Pressure 194/93 H Pulse Oximetry 95 95 Oxygen Delivery Method 06/16/24 05:01 06/16/24 05:01 06/16/24 05:15 Temperature Pulse Rate 69 Respiratory Rate Blood Pressure 211/101 H 210/93 H Pulse Oximetry 94 Oxygen Delivery Method 06/16/24 05:15 06/16/24 05:30 06/16/24 05:30 Temperature Pulse Rate 68 68 Respiratory Rate 118 H Blood Pressure 196/85 H Pulse Oximetry 95 95 Oxygen Delivery Method Room Air 06/16/24 05:40 06/16/24 05:40 06/16/24 06:00 Temperature Pulse Rate 81 68 Respiratory Rate 18 Blood Pressure 216/99 H Pulse Oximetry 97 96 Oxygen Delivery Method Room Air 06/16/24 06:01 06/16/24 06:01 06/16/24 06:30 Temperature Pulse Rate 68 78 Respiratory Rate Blood Pressure 155/67 H Pulse Oximetry 96 96 Oxygen Delivery Method 06/16/24 06:30 06/16/24 06:45 06/16/24 06:45 Temperature Pulse Rate 86 Respiratory Rate Blood Pressure 155/72 H 163/75 H Pulse Oximetry 96 Oxygen Delivery Method 06/16/24 07:00 06/16/24 07:00 06/16/24 07:15 Temperature Pulse Rate 80 81 Respiratory Rate Blood Pressure 177/90 H 177/90 H Pulse Oximetry 95 Oxygen Delivery Method 06/16/24 07:39 06/16/24 07:40 06/16/24 07:40 Temperature Pulse Rate 77 Respiratory Rate Blood Pressure 165/72 H Pulse Oximetry 95 96 Oxygen Delivery Method 06/16/24 08:00 06/16/24 08:01 06/16/24 08:01 Temperature Pulse Rate 73 80 Respiratory Rate Blood Pressure 145/65 H Pulse Oximetry 96 95 Oxygen Delivery Method 06/16/24 08:30 06/16/24 08:54 06/16/24 08:54 Temperature Pulse Rate 75 72 Respiratory Rate Blood Pressure 164/72 H Pulse Oximetry 94 97 Oxygen Delivery Method 06/16/24 08:59 06/16/24 09:00 Temperature Pulse Rate 72 Respiratory Rate Blood Pressure 140/62 Pulse Oximetry 96 Oxygen Delivery Method <Ángel Espinosa DO - Last Filed: 06/16/24 09:07> Orders Ordered: Discontinued Medications Hydralazine HCl (Hydralazine 20 Mg/Ml Vial) 20 mg IV NOW ONE Stop: 06/16/24 05:20 Last Admin: 06/16/24 05:33 Dose: 20 mg Documented By: DAVON Tranexamic Acid 1,000 mg/ (Sodium Chloride) 100 mls @ 200 mls/hr INJ NOW ONE Stop: 06/16/24 04:33 Last Admin: 06/16/24 04:14 Dose: Not Given Documented By: Tranexamic Acid 1,000 mg/ (Sodium Chloride) 100 mls @ 200 mls/hr IV NOW ONE Stop: 06/16/24 07:00 Last Infusion: 06/16/24 07:16 Dose: Infused Documented By: Admin: 06/16/24 06:36 Dose: 200 mls/hr Documented By: DAVON Lidocaine/Epinephrine (Lidocaine 1% W/Epi) 4 ml INJ INTRA-OP ONE Stop: 06/16/24 06:52 Last Admin: 06/16/24 07:00 Dose: 4 ml Documented By: DAVON Silver Nitrate/Potassium Nitrate (Silver Nitrate Stick) 2 each TOP NOW ONE Stop: 06/16/24 04:18 Last Admin: 06/16/24 04:22 Dose: 2 each Documented By: DAVON Silver Nitrate/Potassium Nitrate (Silver Nitrate Stick) 2 each TOP NOW ONE Stop: 06/16/24 06:32 Last Admin: 06/16/24 06:35 Dose: 2 each Documented By: DAVON Tranexamic Acid (Tranexamic Acid 1,000 Mg Vial) 1,000 mg TOP NOW ONE Stop: 06/16/24 04:12 Last Admin: 06/16/24 04:25 Dose: 1,000 mg Documented By: STAR Vital Signs Vital signs: Vital Signs - 8 hr 06/16/24 03:19 06/16/24 03:20 06/16/24 03:20 Temperature Pulse Rate 83 82 Respiratory Rate Blood Pressure 146/95 H Pulse Oximetry 96 97 Oxygen Delivery Method 06/16/24 03:21 06/16/24 03:30 06/16/24 03:30 Temperature 97 F L Pulse Rate 84 84 Respiratory Rate 18 Blood Pressure 146/65 H 176/81 H Pulse Oximetry 96 97 Oxygen Delivery Method Room Air 06/16/24 04:00 06/16/24 04:02 06/16/24 04:02 Temperature Pulse Rate 68 79 Respiratory Rate Blood Pressure 182/81 H Pulse Oximetry 95 96 Oxygen Delivery Method 06/16/24 04:30 06/16/24 04:30 06/16/24 05:00 Temperature Pulse Rate 91 H 75 Respiratory Rate Blood Pressure 194/93 H Pulse Oximetry 95 95 Oxygen Delivery Method 06/16/24 05:01 06/16/24 05:01 06/16/24 05:15 Temperature Pulse Rate 69 Respiratory Rate Blood Pressure 211/101 H 210/93 H Pulse Oximetry 94 Oxygen Delivery Method 06/16/24 05:15 06/16/24 05:30 06/16/24 05:30 Temperature Pulse Rate 68 68 Respiratory Rate 118 H Blood Pressure 196/85 H Pulse Oximetry 95 95 Oxygen Delivery Method Room Air 06/16/24 05:40 06/16/24 05:40 06/16/24 06:00 Temperature Pulse Rate 81 68 Respiratory Rate 18 Blood Pressure 216/99 H Pulse Oximetry 97 96 Oxygen Delivery Method Room Air 06/16/24 06:01 06/16/24 06:01 06/16/24 06:30 Temperature Pulse Rate 68 78 Respiratory Rate Blood Pressure 155/67 H Pulse Oximetry 96 96 Oxygen Delivery Method 06/16/24 06:30 06/16/24 06:45 06/16/24 06:45 Temperature Pulse Rate 86 Respiratory Rate Blood Pressure 155/72 H 163/75 H Pulse Oximetry 96 Oxygen Delivery Method 06/16/24 07:00 06/16/24 07:00 06/16/24 07:15 Temperature Pulse Rate 80 81 Respiratory Rate Blood Pressure 177/90 H 177/90 H Pulse Oximetry 95 Oxygen Delivery Method 06/16/24 07:39 06/16/24 07:40 06/16/24 07:40 Temperature Pulse Rate 77 Respiratory Rate Blood Pressure 165/72 H Pulse Oximetry 95 96 Oxygen Delivery Method 06/16/24 08:00 06/16/24 08:01 06/16/24 08:01 Temperature Pulse Rate 73 80 Respiratory Rate Blood Pressure 145/65 H Pulse Oximetry 96 95 Oxygen Delivery Method 06/16/24 08:30 06/16/24 08:54 06/16/24 08:54 Temperature Pulse Rate 75 72 Respiratory Rate Blood Pressure 164/72 H Pulse Oximetry 94 97 Oxygen Delivery Method 06/16/24 08:59 06/16/24 09:00 Temperature Pulse Rate 72 Respiratory Rate Blood Pressure 140/62 Pulse Oximetry 96 Oxygen Delivery Method MDM - Dental/Oral <Nithya Santoro MD - Last Filed: 06/16/24 21:55> Lab Data 06/16/24 05:28 Labs: Lab Results 06/16/24 Range/Units 05:28 WBC 6.5 (4.5-11.0) X10^3/uL RBC 5.29 (4.5-5.9) X10^6/uL Hgb 16.0 (13.5-17.5) g/dL Hct 47.2 (41-53) % MCV 89.2 (80-100) fL MCH 30.3 (26-34) PG MCHC 34.0 (30-36) % RDW 14.7 (11.6-14.8) % Plt Count 234 (150-400) X10^3/uL Neut % (Auto) 74.7 (50-75) % Lymph % (Auto) 14.4 L (25-40) % [place] % (Auto) 9.0 (3-14) % Eos % (Auto) 1.7 L (2-4) % Baso % (Auto) 0.2 (0-2) % Neut # (Auto) 4900 (7996-6285) /uL Lymph # (Auto) 900 L (5892-6318) /uL [place] # (Auto) 600 (0-900) /uL Eos # (Auto) 100 (0-450) /uL Baso # (Auto) 0 (0-100) /uL [facility] Narrative Medical decision making narrative: Patient with bleeding from his gums after dental extraction 1 week ago. He was on Eliquis. Patient instructed to swish mouth out with ice cold water and topical lidocaine with epinephrine applied. Patient continued to bleed despite application of lidocaine with epinephrine. SurgiSeal applied. SurgiSeal did not stop bleeding. a small amount of lidocaine with epinephrine was infiltrated directly into the gums and silver nitrate applied, however no cessation of bleeding obtained. Subsequently topical TXA applied to gums. Patient had approximately 20 minutes of hemostasis after topical TXA, however after about 20 minutes after the gauze was removed the patient began to bleed again. IV TXA and topical lidocaine with epinephrine again applied. Call made to ENT on-call Dr. Calvin, who stated that he could come in to evaluate the patient and possibly pack the wound with SurgiSeal and apply a stitch. Care of patient is signed out to daytime physician at 7:00 a.m. <Ángel Espinosa DO - Last Filed: 06/16/24 09:07> Lab Data Labs: Lab Results 06/16/24 Range/Units 05:28 WBC 6.5 (4.5-11.0) X10^3/uL RBC 5.29 (4.5-5.9) X10^6/uL Hgb 16.0 (13.5-17.5) g/dL Hct 47.2 (41-53) % MCV 89.2 (80-100) fL MCH 30.3 (26-34) PG MCHC 34.0 (30-36) % RDW 14.7 (11.6-14.8) % Plt Count 234 (150-400) X10^3/uL Neut % (Auto) 74.7 (50-75) % Lymph % (Auto) 14.4 L (25-40) % [place] % (Auto) 9.0 (3-14) % Eos % (Auto) 1.7 L (2-4) % Baso % (Auto) 0.2 (0-2) % Neut # (Auto) 4900 (1374-1590) /uL Lymph # (Auto) 900 L (8955-8152) /uL [place] # (Auto) 600 (0-900) /uL Eos # (Auto) 100 (0-450) /uL Baso # (Auto) 0 (0-100) /uL MDM Narrative Medical decision making narrative: Patient with bleeding from his gums after dental extraction 1 week ago. He was on Eliquis. Patient instructed to swish mouth out with ice cold water and topical lidocaine with epinephrine applied. Patient continued to bleed despite application of lidocaine with epinephrine. SurgiSeal applied. SurgiSeal did not stop bleeding. a small amount of lidocaine with epinephrine was infiltrated directly into the gums and silver nitrate applied, however no cessation of bleeding obtained. Subsequently topical TXA applied to gums. Patient had approximately 20 minutes of hemostasis after topical TXA, however after about 20 minutes after the gauze was removed the patient began to bleed again. IV TXA and topical lidocaine with epinephrine again applied. Call made to ENT on-call Dr. Calvin, who stated that he could come in to evaluate the patient and possibly pack the wound with SurgiSeal and apply a stitch. Care of patient is signed out to daytime physician at 7:00 a.m. 0700: received sign-out from overnight doctor, patient came in complaining of bleeding gums, did have a dental extraction approximately 1 week ago has restarted his Eliquis. Patient has had multiple attempts at attempting control to bleed however patient persists to have slow ooze, has had topical TXA, IV TXA, topical lidocaine with epi, infiltrated lidocaine with epi, Surgicel topically. Currently awaiting ENT consultation, Dr. Calvin for evaluation. 0900: patient was re-evaluated, bleeding has been controlled after intervention by Dr. 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 Is recommending patient to follow up in clinic, also recommending Peridex mouth wash daily, patient was given strict return precautions he understands and agrees with the plan will be safe for discharge home with outpatient follow up. Discharge Plan Departure Patient Disposition: Home Clinical Impression: Surgical wound hemorrhage after dental procedure Activity Restrictions/Additional Instructions: Please follow up with your dentist Please read the discharge instructions sheet carefully and bring all papers to all doctor follow-up visits, as it may contain information that your doctor may want to see. Disease processes change and evolve, if your symptoms worsen or if you develop any new symptoms that are concerning to you please return for evaluation. Your evaluation today does not show any evidence of any life- threatening/serious illnesses requiring admission to the hospital or surgery. Please follow-up with your doctor for re-evaluation in approximately 1 day. Seek immediate medical attention for any worrisome symptoms. Prescriptions: New chlorhexidine gluconate [Peridex] 0.12 % mouthwash 15 ml buccal DAILY Qty: 15 0RF No Action hydrocodone-acetaminophen 5-325 mg tablet 1 tab PO Q6H PRN (Reason: pain) Qty: 10 0RF Stand Alone Forms: Patient Portal/API/Survey
--- NOTE | 2024-06-16 03:24 | PC.NURSE ---
Ice water given for patient to swish and spit
[2024-06-16] MEDS: SILVER NITRATE STICK 2 EACH TOP ×2 (04:22→06:35)
[2024-06-16] MEDS: TRANEXAMIC ACID 1,000 MG VIAL 1000 MG TOP (04:25)
[2024-06-16] MEDS: HYDRALAZINE 20 MG/ML VIAL IV (05:33)
[2024-06-16 05:37] LABS: Add Manual Diff / Slide Review NO; Basophils Absolute Auto 0 /uL (0-100); Basophils Percent Auto 0.2 % (0-2); Eosinophils Absolute Auto 100 /uL (0-450); Eosinophils Percent Auto 1.7 % (2-4); Hematocrit 47.2 % (41-53); Lymphocytes Absolute Auto 900 /uL (1100-4500); Lymphocytes Percent Auto 14.4 % (25-40); Mean Corpuscular Hemoglobin 30.3 PG (26-34); Mean Corpuscular Volume 89.2 fL (80-100); Monocytes Absolute Auto 600 /uL (0-900); Neutrophils Absolute Auto 4900 /uL (1500-7000); Neutrophils Percent Auto 74.7 % (50-75); Platelet Count 234 X10^3/uL (150-400); Red Blood Cell Count 5.29 X10^6/uL (4.5-5.9); Red Cell Distribution Width 14.7 % (11.6-14.8); White Blood Cell Count 6.5 X10^3/uL (4.5-11.0)
[2024-06-16] MEDS: TRANEXAMIC ACID 1,000 MG in SODIUM CHLORIDE 0.9% 100 ML 200 MG IV (06:36)
[2024-06-16] MEDS: LIDOCAINE 1% W/EPI 4 ML INJ (07:00)
== END 2024-06-16 09:22 | disposition home or self-care (01) ==
PROVIDERS: Emergency Medicine; Emergency Provider Student in an Organized Health Care Education/Training Program
DX: K91.840 Postprocedural hemorrhage of a digestive system organ or structure following a digestive system procedure (principal)
CPT/HCPCS: 36415; 85025; 96365; 96375; 99284; J0360